=== PATIENT | male | born 2000 | race African-American/Black ===

== ENCOUNTER 2023-10-15 18:26 | Emergency (ER) | payer BC ==
[~2023-10-15] VITALS: Ht 182.9 cm; Wt 59.1 kg
[2023-10-15] MEDS ORDERED: SODIUM CHLORIDE 0.9% 1,000 ML IV ONE (19:10)
[2023-10-15] MEDS ORDERED: Acetaminophen 300 MG/Codeine 30 MG/COMBO PO ONE (19:10)
[2023-10-15] MEDS ORDERED: KETOROLAC TROMETHAMINE 30 MG/ML SDV IV ONE (19:10)
[2023-10-15 19:30] LABS: URINE BILIRUBIN - DIPSTICK Negative (NEGATIVE); URINE BLOOD DIPSTICK Negative (NEGATIVE); URINE GLUCOSE - DIPSTICK Negative (NEGATIVE); URINE KETONE Negative (NEGATIVE); URINE LEUK ESTERASE Negative (NEGATIVE); URINE NITRITE - DIPSTICK Negative (Negative); URINE PH 5.5 (4.5-8.0); URINE PROTEIN - DIPSTICK Negative (NEG-TRACE); URINE SPECIFIC GRAVITY <=1.005; URINE UROBILINOGEN - DIPSTICK 0.2 E.U./dL (0.2)
[2023-10-15 19:31] VITALS: BP 104/61
[2023-10-15 19:31] LABS: BASO% 0.3 % (0-3); EOS% 0.6 % (0-8); HEMATOCRIT 41.7 % (39.0-50.0); HEMOGLOBIN 14.7 g/dl (14.0-18.0); IMMATURE GRANULOCYTES 0.1 % (0.0-5.0); LYMPH% 20.8 % (15-41); MEAN CELL VOLUME 88.5 fL CALC (80.0-100.0); MEAN CORPUSCULAR HGB 31.2 pG CALC (26.0-32.0); MEAN CORPUSCULAR HGB CONC 35.3 g/dL CAL (32.0-36.0); MONO% 5.1 % (2-13); NEUT# 7.16 thou/uL (1.82-7.42); NEUT% 73.1 % (42-76); RED BLOOD COUNT 4.71 mill/uL (4.70-6.10); RED CELL DISTRI WIDTH 12.3 % (11.5-15.5)
[2023-10-15 19:31] LABS: URINE COLOR Yellow
[2023-10-15 19:42] LABS: ALBUMIN 4.2 g/dL (3.2-5.0); ALKALINE PHOSPHATASE 91 u/l (38-126); ANION GAP 14 (6-22 (CALC)); BILIRUBIN, TOTAL 0.3 mg/dL (0.2-1.3); BUN 13 mg/dL (9-20); BUN/CREATININE RATIO 15 (12-20 (CALC)); CARBON DIOXIDE 24 mmol/l (22-30); CHLORIDE 109 mmol/l (95-108); CPK 130 u/l (55-170); CREATININE 0.9 mg/dL (0.7-1.3); ESTIMATED GFR 122 ML/MIN (>=90 (CALC)); ETHYL ALCOHOL 112 mg/dl (0-30); LIPASE 63 u/l (23-300); POTASSIUM 3.9 mmol/l (3.5-5.1); SGOT/AST 25 u/l (17-59); SODIUM 142 mmol/l (137-146); TOTAL PROTEIN 6.8 g/dL (6.3-8.2)
[2023-10-15] MEDS ORDERED: VOLTAREN - GENE75 MG PO (21:18)
== END 2023-10-15 21:40 | disposition home or self-care (01) | DRG 923 ==
LOC: ED 18:26
PROVIDERS: Family Medicine
DX: T75.01XA Shock due to being struck by lightning, initial encounter (principal); S39.012A Strain of muscle, fascia and tendon of lower back, initial encounter; F10.129 Alcohol abuse with intoxication, unspecified; Y90.5 Blood alcohol level of 100-119 mg/100 ml; Y93.89 Activity, other specified; Y92.833 Campsite as the place of occurrence of the external cause